=== PATIENT | female | born 1970 | race Caucasian/White ===

== ENCOUNTER 2016-12-06 07:24 | Day surgery (SDC) | payer BC ==
[2016-11-29 14:48] LABS: BASOPHILS 0.4 %; BASOPHILS ABSOLUTE 0.02 10/3/uL (0.0-0.16); EOSINOPHILS 1.4 %; EOSINOPHILS ABSOLUTE 0.08 10/3/uL (0.0-0.53); HEMATOCRIT 34.9 % (36.0-48.0); HEMOGLOBIN 11.5 g/dL (12.0-16.0); IMMATURE GRANULOCYTES 0.2 %; IMMATURE GRANULOCYTES ABSOLUTE 0.01 10/3/uL (0.0-0.11); LYMPHOCYTES ABSOLUTE 2.11 10/3/uL (0.67-4.30); MEAN CORPUSCULAR HEMOGLOB 31.1 pg (26.0-34.0); MEAN CORPUSCULAR VOLUME 94.3 fL (80-100); MEAN PLATELET VOLUME 9.4 fL (9.2-13.0); MONOCYTES 9.5 %; MONOCYTES ABSOLUTE 0.54 10/3/uL (0.21-1.20); NEUTROPHILS 51.5 %; NEUTROPHILS ABSOLUTE 2.95 10/3/uL (2.02-8.40); PLATELET COUNT 337 10/3/uL (150-400); RBC DISTRIBUTION WIDTH 12.9 % (12.0-16.0); WHITE BLOOD CELLS 5.7 10/3/uL (4.5-10.5)
[2016-11-29 14:51] LABS: MANUAL DIFF NO %
[2016-11-29 15:00] LABS: ALBUMIN 3.9 G/DL (3.5-5.0); ALKALINE PHOSPHATASE 106 U/L (45-117); BUN (BLOOD UREA NITROGEN) 17 MG/DL (6-23); CALCIUM, SERUM 9.1 MG/DL (8.5-10.4); CHLORIDE, SERUM 104 MMOL/L (96-112); CO2 (CARBON DIOXIDE) 27 MMOL/L (24-34); CREATININE 0.91 MG/DL (0.55-1.02); GFR AFRICAN AMERICAN 86 ML/MIN (>=60); GFR NON AFRICAN AMERICAN 75 ML/MIN (>=60); GLOBULIN 3.8 G/DL (2.5-4.1); GLUCOSE, SERUM 95 MG/DL (60-99); POTASSIUM, SERUM 3.7 MMOL/L (3.5-5.3); SGOT(AST) 12 U/L (5-40); SGPT(ALT) 19 U/L (5-65); SODIUM, SERUM 139 MMOL/L (135-148); TOTAL BILIRUBIN 0.4 MG/DL (0-1.2); TOTAL PROTEIN 7.7 G/DL (6.0-8.5)
--- NOTE | ~2016-12-06 | PREOPHP ---
PreOp History and Physical [address] [id number] [place]. [address] NAME: JIM ENCARNACION : 66 STATUS : PRE [facility] [place] PAT#: [id number] AGE: 46 ADM/REG DATE : MR#: [id number] REPORT SERV DATE: 12/06/16 DICTATED BY: ТАТЬЯНА HERNADEZ III DATE: 11/15/16 REPORT STATUS : Draft TRANSCRIBED BY: MODL DATE: 11/15/16 HISTORY OF PRESENT ILLNESS: This 46-year-old female comes to operating room for left breast lumpectomy with stereotactic wire localization. The patient recently had a routine mammogram. This mammogram showed a lesion of concern in the left breast. The patient had no palpable abnormality. She has had no breast pain or tenderness. The mammogram showed a lesion of concern at the 10 o'clock position in the left breast. This was described as a 3- mm group of faintly visible microcalcifications in the upper inner quadrant of the periareolar region of the left breast. Recent ultrasound-directed core needle biopsy of this area was performed. This showed fibrocystic changes with 1 mm focus of atypical lobular hyperplasia. The patient comes to the operating room now for lumpectomy for removal of this lesion to rule out the possibility of an invasive malignancy. The patient has no palpable breast mass. She has had no nipple discharge. She has no family history for breast cancer. PAST MEDICAL HISTORY: 1. Hypertension. 2. History of transient ischemic attack in the past. MEDICATIONS: Lisinopril. PAST SURGICAL HISTORY: Status post cholecystectomy. FAMILY HISTORY: No family history of breast cancer. SOCIAL HISTORY: No history of tobacco or alcohol use. ALLERGIES: NONE. PHYSICAL EXAMINATION: GENERAL: This is a female, in no acute distress. She is alert and oriented x3. VITAL SIGNS: Blood pressure 120/74, pulse 66, temperature 98. HEENT: Unremarkable. Cranial nerves 2 through 12 are normal. LUNGS: Clear. CARDIAC: Normal. BREASTS: Left and right breast are remarkable for a fibroglandular changes with no dominant masses or nodules. Both nipples are normal with no discharge. Both axilla are normal with no adenopathy. EXTREMITIES: Normal. LABORATORY: Mammogram and ultrasound directed biopsy are as above. ASSESSMENT: 1. 46-year-old female with abnormal focus of atypical lobular hyperplasia in left breast at the 10 o'clock position, rule out invasive malignancy. 2. Hypertension. 3. History of transient ischemic attack in the past. PreOp History and Physical [address] [address] NAME: JIM ENCARNACION : 66 STATUS : PRE [facility] [place] PAT#: [id number] AGE: 46 ADM/REG DATE : MR#: [id number] REPORT SERV DATE: 12/06/16 DICTATED BY: ТАТЬЯНА HERNADEZ III DATE: 11/15/16 REPORT STATUS : Draft TRANSCRIBED BY: ERICKSON DATE: 11/15/16 PLAN: The patient comes to the operating room now for left breast lumpectomy with stereotactic wire localization. This procedure, the risks, benefits, and alternatives, including, but not limited to the risk for bleeding, infection, pain, swelling, scarring, deformity to the area, seroma formation, hematoma formation, distortion of breast, change in size of the breast, false localization, possible need for further surgery, and unforeseen complications including deep venous thrombosis, pulmonary embolus, myocardial infarction, stroke, pneumonia, and , have been explained to the patient prior to surgery. Her questions have been answered. She understands the risks and agrees to surgery as planned. SCARLET/ERICKSON Татьяна Hernadez III, M.D. / [id number]
--- NOTE | ~2016-12-06 | OP ---
Record Of Operation [facility] [address] [place]. [address] NAME: JIM ENCARNACION : 66 STATUS : REG [facility] [place] PAT#: [id number] AGE: 46 ADM/REG DATE : 12/06/16 MR#: [id number] REPORT SERV DATE: 12/06/16 DICTATED BY: ТАТЬЯНА HERNADEZ III DATE: 12/06/16 REPORT STATUS : Draft TRANSCRIBED BY: MODZahra DATE: 12/06/16 DATE OF PROCEDURE: 12/06/2016 PREOPERATIVE DIAGNOSIS: Abnormal mass, left breast; atypical lobular hyperplasia on core needle biopsy of concern for invasive malignancy. POSTOPERATIVE DIAGNOSIS: Abnormal mass, left breast; atypical lobular hyperplasia on core needle biopsy of concern for invasive malignancy. PROCEDURE: Left breast lumpectomy with stereotactic wire localization. ANESTHESIA: General with intubation. COMPLICATIONS: None. ESTIMATED BLOOD LOSS: Less than 5 mL. SPECIMENS: Lumpectomy specimen from the left breast. DRAINS: None. LAP AND SPONGE COUNT: Correct x3. BRIEF HISTORY: This 46-year-old female was recently found on routine mammogram to have an abnormal lesion of concern located at the 10 o'clock position in the upper inner quadrant of the left breast. Core needle biopsy had been performed, showing a focus of atypical lobular hyperplasia. It was felt that lumpectomy is indicated to rule out possibility of malignancy associated with this finding. This procedure, the risks, benefits, and alternatives, including but not limited to the risk for bleeding, infection, pain, swelling, scarring, deformity to the breast, seroma formation, hematoma formation, possible need for further surgery, and unforeseen complications including deep venous thrombosis, pulmonary embolus, myocardial infarction, stroke, pneumonia, and were explained to the patient prior to the surgery. Her questions were answered. She understood the risks and agreed to the surgery as planned. DESCRIPTION OF PROCEDURE: After being properly identified, and after stereotactic wire localization of the lesion had been performed per Radiology, the patient was taken to the operating room placed in supine position on the operating room table. General anesthesia was administered. She was intubated without difficulty. The left breast was prepped and draped sterilely in the usual fashion, taking care not to dislodge the guidewire from the breast. After an appropriate "time-out" per JCAHO standards, a curvilinear elliptical- shaped incision was made in the upper outer quadrant of the breast in the periareolar region, centered around the exit site of the guidewire from the skin. Using sharp dissection, a core of breast tissue centered around the wire was excised, down to the fascia. This core was generously around the wire and the wire was not encroached or injured. The entire block of tissue was removed, oriented with sutures, and sent for Record Of Operation [address] [place]. [address] NAME: JIM ENCARNACION : 66 STATUS : REG [facility] [place] PAT#: [id number] AGE: 46 ADM/REG DATE : 12/06/16 MR#: [id number] REPORT SERV DATE: 12/06/16 DICTATED BY: ТАТЬЯНА HERNADEZ III DATE: 12/06/16 REPORT STATUS : Draft TRANSCRIBED BY: ERICKSON DATE: 12/06/16 specimen imaging. This was interpreted as containing the lesion of concern. The area was inspected both through and around the incision. No suspicious lesions or masses were identified. The wound was irrigated copiously with saline. Hemostasis was assured. The subcutaneous tissue was closed with interrupted 3-0 Vicryl sutures. The skin was closed with a running subcuticular 4-0 Monocryl stitch. The incision was injected with 0.5% Marcaine. Dressings were applied. Anesthesia was reversed, and the patient was taken to recovery room in stable condition. She tolerated the procedure well. Her family was informed the results of the surgery. The patient will be discharged when stable and comfortable. Her family was advised that she should keep the wound clean and dry for 48 hours, that she should not drive for two to three days after surgery or use narcotics, and that she should resume her usual medications. The specimen was sent for permanent pathology. The patient will be asked to return in two weeks for followup or sooner if any fever, chills, wound drainage, or other problems prior to that time. She will be given a prescription for Percocet 7.5 one p.o. t.i.d., #12, as needed for pain, which she will be advised not to use while driving. SCARLET/ERICKSON Татьяна Hernadez III, M.D. / [id number] CC: Tabatha Flores III, M.D.
[~2016-12-06 07:24] MED LIST: PRINZIDE1 TAB PO
== END 2016-12-06 16:17 | disposition home or self-care (01) ==
LOC: SDC 07:24
PROVIDERS: Surgery
PROC: 0HBU0ZZ Excision of Left Breast, Open Approach (ICD-10-PCS; principal; 2016-12-06 11:30)
DX: N60.92 Unspecified benign mammary dysplasia of left breast (principal); I10 Essential (primary) hypertension; D64.9 Anemia, unspecified; Z86.73 Personal history of transient ischemic attack (TIA), and cerebral infarction without residual deficits; Z90.49 Acquired absence of other specified parts of digestive tract; Z87.19 Personal history of other diseases of the digestive system; Z79.899 Other long term (current) drug therapy; Z98.51 Tubal ligation status; Z98.890 Other specified postprocedural states
CPT/HCPCS: 71020; 76098; 80053; 84703; 85025; 88307; 93005; J0690; J2250; J2405; J3010